=== PATIENT | female | born 1950 | race Caucasian/White ===

== ENCOUNTER 2023-08-06 20:08 | Inpatient (IN) | payer MEDICARE, OTHER ==
[~2023-08-06] VITALS: Ht 160 cm; Wt 56.7 kg
[2023-08-06 20:40] LABS: BASOPHILS # (AUTO) 0.1 K/UL (0.0-0.2); BASOPHILS % (AUTO) 0.8 % (0.0-2.0); EOSINOPHILS # (AUTO) 0.2 K/uL (0.0-0.7); EOSINOPHILS % (AUTO) 3.2 % (0.0-7.0); HEMOGLOBIN 11.8 g/dL (10.9-14.3); LYMPHOCYTES # (AUTO) 1.8 K/uL (0.8-4.8); LYMPHOCYTES % (AUTO) 23.9 % (20.5-51.5); MEAN CORPUSCULAR HEMOGLOBIN 26.7 uug (24.7-32.8); MEAN CORPUSCULAR HGB CONC 33 g/dL (32.3-35.6); MEAN CORPUSCULAR VOLUME 81.7 fL (75.5-95.3); MONOCYTES # (AUTO) 0.6 K/uL (0.1-1.30); MONOCYTES % (AUTO) 7.8 % (0.0-11.0); NEUTROPHILS # (AUTO) 4.7 K/uL (1.8-8.9); NEUTROPHILS % (AUTO) 64.3 % (38.5-71.5); PLATELET COUNT (AUTO) 274 K/uL (179-408); RED BLOOD CELL COUNT(AUTO) 4.41 MIL/uL (3.63-4.92); RED CELL DISTRIBUTION WIDTH 14.9 % (12.3-17.7); WHITE BLOOD COUNT (AUTO) 7.3 K/uL (3.8-11.8)
[2023-08-06 20:41] LABS: CALCIUM 9.3 mg/dL (8.5-10.1); CARBON DIOXIDE 27 mmol/L (21-32); CHLORIDE 100 mmol/L (98-107); CREATININE 0.9 mg/dL (0.6-1.3); GLUCOSE 191 mg/dL (74-106); POTASSIUM 4.5 mmol/L (3.5-5.1); SODIUM SERUM 137 mmol/L (136-145); UREA NITROGEN, BLOOD 19 mg/dL (7-18)
[2023-08-06] MEDS ORDERED: RISP1TAB97 PO (20:42)
[2023-08-06] MEDS ORDERED: METF-442 PO (20:42)
[2023-08-06] MEDS ORDERED: SITA100T PO (20:42)
[2023-08-06 20:43] LABS: *BILIRUBIN,URIN NEGATIVE (NEGATIVE); *BLOOD, URINE NEGATIVE (NEGATIVE); *CLARITY,URINE CLEAR (CLEAR); *COLOR,URINE YELLOW (YELLOW); *KETONES,URINE NEGATIVE (NEGATIVE); *PROTEIN,URINE 2+ (NEGATIVE); *UROBILINOGEN,URINE 0.2 E.U./dl (NORMAL); LEUKOCYTE ESTERASE ,URINE TRACE (NEGATIVE); NITRITE, URINE NEGATIVE (NEGATIVE); PH,URINE 5.5 (5.0-8.0); UGLUCOSE NEGATIVE (NEGATIVE)
[2023-08-06 20:55] LABS: ALANINE AMINOTRANSFERASE 17 U/L (14-59); ALBUMIN 3.5 g/dL (3.4-5.0); ALKALINE PHOSPHATASE 88 U/L (50-136); ASPARTATE AMINOTRANSFERASE 10 U/L (15-37); BILIRUBIN,DIRECT 0.1 mg/dL (0.0-0.2); BILIRUBIN,TOTAL 0.4 mg/dL (0.2-1.0)
[2023-08-06 20:57] LABS: *AMPHETAMINE, URINE NEGATIVE (NEGATIVE); *BARBITURATE, URINE NEGATIVE (NEGATIVE); *BENZODIAZEPINE, URINE NEGATIVE (NEGATIVE); *CANNABINOID, URINE NEGATIVE (NEGATIVE); *COCCAINE, URINE NEGATIVE (NEGATIVE); *OPIATE, URINE NEGATIVE (NEGATIVE); *PHENCYCLIDINE SCREEN,URINE NEGATIVE (NEGATIVE); FENTANYL, URINE NEGATIVE (NEGATIVE)
[2023-08-06 20:58] LABS: ACETAMINOPHEN < 2.0 ug/mL (10-30)
[2023-08-06 21:20] LABS: ETHANOL < 3 MG/DL (0-10)
[2023-08-06 23:20] LABS: RBC,URINE 0-3 /HPF (0-3)
[2023-08-06 23:21] LABS: BACTERIA,URINE FEW /HPF (NONE SEEN); SQUAMOUS EPITHELIAL CELL,UR FEW /HPF (NONE SEEN)
[2023-08-06 23:45] VITALS: BP 153/70; TEMP 98.3; O2SAT 98
[2023-08-06] MEDS ORDERED: ACETAMINOPHEN 325 MG TABLET PO PRN (23:45)
[2023-08-06] MEDS ORDERED: MAGNESIUM HYDROXIDE 30 ML LIQUID UDC PO PRN (23:45)
[2023-08-06] MEDS ORDERED: MAG HYDROX/AL HYDROX/SIMETH 30 ML LIQUID UDC PO PRN (23:45)
[2023-08-07 07:50] VITALS: BP 132/73; TEMP 98.2; O2SAT 99
[2023-08-07 08:10] LABS: ALBUMIN 3.3 g/dL (3.4-5.0); BILIRUBIN,TOTAL 0.6 mg/dL (0.2-1.0); CALCIUM 9.2 mg/dL (8.5-10.1); CREATININE 0.8 mg/dL (0.6-1.3); POTASSIUM 4.4 mmol/L (3.5-5.1); TOTAL PROTEIN, SERUM 7.8 g/dL (6.4-8.2)
[2023-08-07] MEDS ORDERED: METF-441 PO (09:25)
[2023-08-07] MEDS: METFORMIN HCL 850 MG TABLET PO STA (11:55)
[2023-08-07] MEDS: LINAGLIPTIN 5 MG TABLET PO STA (11:56)
[2023-08-07 15:52] VITALS: BP 127/56; TEMP 98.2; O2SAT 98
[2023-08-07] MEDS: METFORMIN HCL 850 MG TABLET PO SCH (19:28)
[2023-08-07 20:29] VITALS: BP 158/67; TEMP 98; O2SAT 97
[2023-08-07] MEDS: risperiDONE-M 0.5 MG TAB.RAPDIS PO SCH (21:00)
[2023-08-07] MEDS: CLONAZEPAM 0.5 MG TABLET PO PRN (21:06)
[2023-08-07] MEDS: ATORVASTATIN 20 MG TABLET PO SCH (21:06)
[2023-08-08 07:52] VITALS: BP 144/71; TEMP 97.9; O2SAT 99
[2023-08-08] MEDS: LINAGLIPTIN 5 MG TABLET PO SCH (08:49)
[2023-08-08] MEDS ORDERED: Medication Not On Formulary EA (Sitagliptin Phosphate (Januvia) 100 MG) PO SCH (09:00)
[2023-08-08 16:20] VITALS: BP 153/77; TEMP 98; O2SAT 98
[2023-08-08] MEDS: JANUVIA 100 MG PO SCH (17:21)
[2023-08-08] MEDS: [UNRECOGNIZED DRUG - OTHER] PO SCH (17:21)
[2023-08-08 20:07] VITALS: BP 147/66; TEMP 98.1; O2SAT 98
[2023-08-09 07:55] VITALS: BP 116/63; TEMP 98.4; O2SAT 100
[2023-08-09 16:45] VITALS: BP 151/74; TEMP 98.1; O2SAT 99
[2023-08-09 20:18] VITALS: BP 128/60; TEMP 98.2; O2SAT 99
[2023-08-09] MEDS: TEMAZEPAM 7.5 MG CAPSULE PO PRN (22:13)
[2023-08-10 07:50] VITALS: BP 137/68; TEMP 98.2; O2SAT 98
[2023-08-10 15:55] VITALS: BP 147/65; TEMP 98.1; O2SAT 98
[2023-08-10 20:05] VITALS: BP 153/67; TEMP 98.1; O2SAT 96
[2023-08-11 08:31] VITALS: BP 113/51; TEMP 98.2; O2SAT 96
[2023-08-11 15:29] VITALS: BP 130/62; TEMP 98; O2SAT 96
[2023-08-11 20:22] VITALS: BP 139/67; TEMP 98.1; O2SAT 98
[2023-08-12 08:03] VITALS: BP 128/63; TEMP 98; O2SAT 98
[2023-08-12] MEDS: [UNRECOGNIZED DRUG - OTHER] PO SCH (08:40)
[2023-08-12] MEDS: JANUVIA 100 MG PO SCH (08:40)
== END 2023-08-12 13:47 | disposition home or self-care (01) | DRG 885 ==
LOC: ER 20:11 → GPS 22:30
PROVIDERS: ADMIT Psychiatry & Neurology Psychiatry; ATTEND Nurse Practitioner Acute Care
DX: F29 Unspecified psychosis not due to a substance or known physiological condition (principal); E11.65 Type 2 diabetes mellitus with hyperglycemia; T76.11XA Adult physical abuse, suspected, initial encounter; Z79.84 Long term (current) use of oral hypoglycemic drugs; E78.5 Hyperlipidemia, unspecified; F20.0 Paranoid schizophrenia; R79.89 Other specified abnormal findings of blood chemistry; Z79.899 Other long term (current) drug therapy
CPT/HCPCS: 36415; 85025; A4606; A4663; G0480